=== PATIENT | female | born 1970 ===

== ENCOUNTER 2020-02-10 11:58 | Outpatient (CLI) | payer OTHER ==
[2020-02-13] MEDS ORDERED: ADULT ASPIRIN81 MG PO (11:55)
[2020-02-13] MEDS ORDERED: FORTAMET500 MG PO (11:55)
[2020-02-13] MEDS ORDERED: TOPROL XL25 M1 PO (11:56)
[2020-02-13] MEDS ORDERED: ZESTRIL5 MG PO (11:56)
== END 2020-02-10 11:59 | disposition home or self-care (01) ==
LOC: RAD 11:58
PROVIDERS: ATTEND Urology
DX: D62 Acute posthemorrhagic anemia (principal); I11.0 Hypertensive heart disease with heart failure; E11.9 Type 2 diabetes mellitus without complications

== ENCOUNTER → 2020-02-13 10:01 | Outpatient (CLI) | payer OTHER ==
[~2020-02-13 10:01] MED LIST: ADULT ASPIRIN81 MG PO; B12 ACTIVE1000 MCG PO; CIPROFLOXA500 MG/5 M PO; FOLIC ACID0.8 M1 PO; FORTAMET500 MG PO; FUSION PLUS CA1 EACH PO; TOPROL XL25 M1 PO; ZESTRIL5 MG PO
== END | disposition home or self-care (01) ==
LOC: EKG 10:01
PROVIDERS: ATTEND Urology
DX: Z01.810 Encounter for preprocedural cardiovascular examination (principal)

== ENCOUNTER 2020-02-13 15:05 | Inpatient (IN) | payer OTHER ==
[~2020-02-13] VITALS: Ht 170.2 cm; Wt 99.8 kg
[~2020-02-13 15:05] MED LIST changes: -B12 ACTIVE1000 MCG PO; -CIPROFLOXA500 MG/5 M PO; -FOLIC ACID0.8 M1 PO; -FUSION PLUS CA1 EACH PO
[2020-02-26] MEDS ORDERED: B12 ACTIVE1000 MCG PO (11:21)
[2020-02-26] MEDS ORDERED: FUSION PLUS CA1 EACH PO (11:22)
[2020-02-26] MEDS ORDERED: CIPROFLOXA500 MG/5 M PO (11:22)
[2020-02-26] MEDS ORDERED: FOLIC ACID0.8 M1 PO (11:22)
== END 2020-03-06 09:44 | disposition home or self-care (01) | DRG 661 ==
LOC: SURH 03-04 07:15 → O/R 03-04 07:15 → SURH 03-04 09:00
PROVIDERS: ADMIT Urology; ATTEND Urology
PROC: 0TF38ZZ Fragmentation in Right Kidney Pelvis, Via Natural or Artificial Opening Endoscopic (ICD-10-PCS; 2020-03-04)
PROC: BT1DZZZ Fluoroscopy of Right Kidney, Ureter and Bladder (ICD-10-PCS; 2020-03-04)
PROC: 0TC08ZZ Extirpation of Matter from Right Kidney, Via Natural or Artificial Opening Endoscopic (ICD-10-PCS; principal; 2020-03-04 09:00)
DX: N20.0 Calculus of kidney (principal)

== ENCOUNTER → 2020-03-02 08:42 | Outpatient (CLI) | payer OTHER ==
[~2020-03-02 08:42] MED LIST changes: +B12 ACTIVE1000 MCG PO; +CIPROFLOXA500 MG/5 M PO; +FOLIC ACID0.8 M1 PO; +FUSION PLUS CA1 EACH PO
== END | disposition home or self-care (01) ==
LOC: LAB 08:42
PROVIDERS: ATTEND Urology
DX: N20.0 Calculus of kidney (principal); D62 Acute posthemorrhagic anemia

== ENCOUNTER 2020-03-13 09:41 | Outpatient (CLI) | payer OTHER | END 2020-03-13 15:00 | disposition home or self-care (01) | LOC: LAB 09:41 | PROVIDERS: ATTEND Urology | DX: N20.0 Calculus of kidney (principal) ==

== ENCOUNTER 2020-04-02 11:39 | Outpatient (CLI) | payer OTHER | END 2020-04-02 11:51 | disposition home or self-care (01) | LOC: RAD 11:39 | PROVIDERS: ATTEND Urology | DX: N20.0 Calculus of kidney (principal) ==

== ENCOUNTER 2020-06-24 14:41 | Outpatient (CLI) | payer OTHER | END 2020-06-24 14:51 | disposition home or self-care (01) | LOC: RAD 14:41 | PROVIDERS: ATTEND Urology | DX: N20.0 Calculus of kidney (principal) ==

== ENCOUNTER 2020-07-02 11:30 | Inpatient (IN) | payer OTHER ==
[2020-07-02] MEDS ORDERED: BIOTINEX (15:28)
[2020-07-02] MEDS ORDERED: SULFAMETH (15:29)
[2020-07-08] MEDS ORDERED: BACTRIM DS TAB1 EACH (08:00)
[2020-07-08] MEDS ORDERED: BIOTIN5 M1 (08:02)
== END 2020-07-10 11:03 | disposition home or self-care (01) | DRG 661 ==
LOC: SURH 07-08 07:00 → O/R 07-08 07:10 → SURH 07-08 11:30 → MEDI 07-09 17:39 → SURH 07-09 17:39 → MEDI 07-09 21:10
PROVIDERS: ADMIT Urology; ATTEND Urology
PROC: 0T9430Z Drainage of Left Kidney Pelvis with Drainage Device, Percutaneous Approach (ICD-10-PCS; 2020-07-08)
PROC: 0TC18ZZ Extirpation of Matter from Left Kidney, Via Natural or Artificial Opening Endoscopic (ICD-10-PCS; principal; 2020-07-08 07:00)
DX: N20.0 Calculus of kidney (principal); I10 Essential (primary) hypertension; E11.9 Type 2 diabetes mellitus without complications

== ENCOUNTER 2020-07-17 07:54 | Outpatient (CLI) | payer OTHER ==
[~2020-07-17 07:54] MED LIST changes: +BACTRIM DS TAB1 EACH; +BIOTIN5 M1; +BIOTINEX; +SULFAMETH
== END 2020-07-17 08:02 | disposition home or self-care (01) ==
LOC: RAD 07:54
PROVIDERS: ATTEND Urology
DX: N20.0 Calculus of kidney (principal)